=== PATIENT | male | born 1990 | race Caucasian/White ===

== ENCOUNTER 2016-08-02 18:41 | Inpatient (IN) | payer OTHER ==
[~2016-08-02] VITALS: Ht 182.9 cm; Wt 110.3 kg
[2016-08-02 18:58] LABS: EOSINOPHIL (%) 2.3 % (0-5); EOSINOPHIL COUNT 0.2 K/uL (0-0.3); HEMATOCRIT 46.5 % (38.0-50.0); IMMATURE GRANULOCYTE (%) 0.3 % (0.0-0.7); INSTRUMENT ABS NEUTROPHIL CT 5.8 K/uL; LYMPHOCYTE COUNT 1.9 K/uL (1.0-2.8); MCH 28.6 PG (29.0-34.0); MCHC 31.8 G/DL (30.0-36.0); MCV 89.8 FL (86-99); MEAN PLAT.VOLUME 10.5 uM^3 (9.0-12.4); MONOCYTE (%) 9.2 % (3-12); MONOCYTE COUNT 0.8 K/uL (0-0.8); NEUTROPHIL (%) 65.8 % (45-76); NEUTROPHIL COUNT 5.8 K/uL (1.8-6.4); PLATELET COUNT 218 K/uL (156-360); RBC DIS.WIDTH-CV 13.3 % (11.8-14.6); RBC DIS.WIDTH-SD 43.9 % (39-53); RED BLOOD COUNT 5.18 M/uL (4.00-5.50); WHITE BLOOD COUNT 8.8 K/uL (4.1-10.2)
[2016-08-02 19:10] LABS: AMYLASE 48 IU/L (1-118); CHLORIDE 102 mEq/L (99-109); POTASSIUM 3.6 mEq/L (3.7-5.4); SODIUM 140 mEq/L (136-147)
[2016-08-02 19:11] LABS: GLUCOSE 95 mg/dL (70-99)
[2016-08-02 19:13] LABS: ANION GAP 15 MEQ/L (2-14)
[2016-08-02 19:15] LABS: GFR ESTIMATE (CALCULATED) > 59 mL/min/; SERUM ETHYL ALCOHOL 48 mg/dL
[2016-08-02 19:16] LABS: UREA NITROGEN (BUN) 15 mg/dL (9-23)
[2016-08-02 19:18] LABS: LIPASE 18 U/L (1.0-51.0)
[2016-08-03] VITALS (7 sets, daily range): BP systolic 110–141; BP diastolic 49–78
[2016-08-04 06:26] LABS: HEMATOCRIT 33.4 % (38.0-50.0); MCV 90.8 FL (86-99)
[2016-08-04 06:37] LABS: GFR ESTIMATE (CALCULATED) > 59 mL/min/
[2016-08-04 15:32] VITALS: BP 141/86
[2016-08-05 00:13] VITALS: BP 132/63
[2016-08-05 03:53] VITALS: BP 116/55
[2016-08-05 08:25] VITALS: BP 134/62
[2016-08-05 12:02] VITALS: BP 126/58
[2016-08-05 14:48] LABS: HEMATOCRIT 35.3 % (38.0-50.0); MCV 90.3 FL (86-99)
[2016-08-05 16:18] VITALS: BP 120/55
[2016-08-05 23:38] VITALS: BP 127/56
[2016-08-06 04:14] VITALS: BP 139/63
[2016-08-06] MEDS ORDERED: ECOTRIN325 MG PO (08:14)
[2016-08-06] MEDS ORDERED: KEFLEX500 MG PO (08:14)
[2016-08-06] MEDS ORDERED: NORCO 5/3251 TABLET PO (08:14)
[2016-08-06] MEDS ORDERED: VISTARIL25 MG PO (08:14)
[2016-08-06 08:27] VITALS: BP 116/53
[2016-08-06 12:37] VITALS: BP 120/57
== END 2016-08-06 13:58 | disposition home or self-care (01) | DRG 494 ==
LOC: TRA 18:41 → SDC 21:51 → 3EAST 08-03 00:29 → 2SOUTH 08-03 00:29 → 3EAST 08-03 01:25
PROVIDERS: Emergency Medicine; Orthopaedic Surgery; Physician Assistant Surgical
DX: S82.201A Unspecified fracture of shaft of right tibia, initial encounter for closed fracture (principal); S82.831A Other fracture of upper and lower end of right fibula, initial encounter for closed fracture; S81.001A Unspecified open wound, right knee, initial encounter; V29.9XXA Motorcycle rider (driver) (passenger) injured in unspecified traffic accident, initial encounter; S83.141A Lateral subluxation of proximal end of tibia, right knee, initial encounter
CPT/HCPCS: 70450; 71260; 72125; 72129; 72132; 73030; 73560; 73590; 74177; 76000; 80048; 80170; 81003; 82150; 82565; 83690; 85014; 85018; 85025; 86850; 86900; 86901; 99281; 99285; C1713; G0480; J0690; J1100; J1170; J1200; J1580; J1885; J2175; J2250; J2405; J3010; J7050; J7120